=== PATIENT | male | born 1955 | race Caucasian/White ===

== ENCOUNTER 2018-01-27 18:55 | Observation (INO) | payer OTHER ==
--- NOTE | 2018-01-27 18:58 | ED ---
Fall HPI - General Stated Complaint: [facility]-Fall Time Seen by Provider: 01/27/18 18:57 - History of Present Illness Initial Comments: This is a 63-year-old male to the ER status post fall. Patient mechanical trip and fall off of a truck possible tanker truck onto ground possible left-sided injury. Patient was amateur at the scene. Again patient is no medical history takes no medications. No loss of consciousness, patient did hit his head he is brought in by EMS with c-collar anger putting of left flank pain. Patient is able to ambulate no loss of bowel or bladder. \No anterior abdominal pain. MD Complaint: fall -: minutes(s) Fall From: standing When Fall Occurred: 1 hour [employer] Fall Witnessed: yes, by family Place Fall Occurred: home Loss of Consciousness: none Prolonged Down Time?: no Symptoms Prior to Fall: none Location: head Severity: mild Context: tripped/slipped Associated Symptoms: denies - Related Data Home Medications Medication Instructions Recorded Confirmed No Known Home Medications 01/28/18 01/28/18 Allergies Allergy/AdvReac Type Severity Reaction Status Date / Time No Known Allergies Allergy Verified 01/28/18 08:50 Review of Systems ROS Statement: Those systems with pertinent positive or pertinent negative responses have been documented in the HPI. ROS Other: All systems not noted in ROS Statement are negative. Past Medical History - Past Family History Father Family Medical History: No Reported History General Exam - General Exam Comments Initial Comments: Patient has a GCS of 15 airways patent trach is midline Patient is complaining of left flank pain and does have some left flank muscular tenderness,no spinal tenderness General appearance: alert, in no apparent distress Head exam: Present: atraumatic, normocephalic, normal inspection Eye exam: Present: normal appearance, PERRL, EOMI. Absent: scleral icterus, conjunctival injection, periorbital swelling ENT exam: Present: normal exam, mucous membranes moist Neck exam: Present: normal inspection. Absent: tenderness, meningismus, lymphadenopathy Respiratory exam: Present: normal lung sounds bilaterally. Absent: respiratory distress, wheezes, rales, rhonchi, stridor Cardiovascular Exam: Present: regular rate, normal rhythm, normal heart sounds. Absent: systolic murmur, diastolic murmur, rubs, gallop, clicks GI/Abdominal exam: Present: soft, normal bowel sounds. Absent: distended, tenderness, guarding, rebound, rigid Extremities exam: Present: normal inspection, full ROM, normal capillary refill. Absent: tenderness, pedal edema, joint swelling, calf tenderness Back exam: Present: normal inspection, paraspinal tenderness (Lower thoracic spine and lumbar spine left) Neurological exam: Present: alert, oriented X3, CN II-XII intact Psychiatric exam: Present: normal affect, normal mood Skin exam: Present: warm, dry, intact, normal color. Absent: rash Course Vital Signs 01/27/18 01/27/18 01/27/18 18:56 19:29 19:30 Temperature 98.1 F 98.3 F Pulse Rate 70 63 Respiratory 18 18 Rate Blood Pressure 112/68 103/58 O2 Sat by Pulse 98 96 91 L Oximetry 01/27/18 01/27/18 01/27/18 19:54 20:00 20:30 Temperature Pulse Rate Respiratory Rate Blood Pressure 93/55 107/83 O2 Sat by Pulse 97 99 99 Oximetry 01/27/18 01/27/18 01/27/18 20:40 20:50 21:00 Temperature Pulse Rate Respiratory Rate Blood Pressure 107/83 107/83 107/83 O2 Sat by Pulse 99 Oximetry 01/27/18 01/27/18 01/27/18 21:09 21:10 21:52 Temperature 98.2 F Pulse Rate 62 66 Respiratory 18 18 Rate Blood Pressure 110/75 110/75 122/71 O2 Sat by Pulse 98 95 97 Oximetry 01/27/18 01/27/18 01/28/18 22:21 23:51 00:59 Temperature 98.4 F 98.2 F Pulse Rate 62 62 73 Respiratory 16 16 16 Rate Blood Pressure 118/67 134/75 117/74 O2 Sat by Pulse 97 94 L 95 Oximetry - Reevaluation(s) Reevaluation #1: 01/27/18 21:07 Medical record is reviewed and noncontributory Reevaluation #2: 01/27/18 21:07 Patient is in no specific pain, vital signs remain normal and stable Reevaluation #3: 01/27/18 21:07 Spoke with general surgery on-call regarding findings of CAT scan Medical Decision Making - Medical Decision Making 63 male the ER after fall. Patient a fall off a truck significant fall causing left sided abdominal pain. Patient has likely mild interabdominal bleeding secondary to trauma. Patient be admitted for trauma surgery and evaluation - Lab Data Result diagrams: 01/27/18 21:07 01/27/18 21:07 Lab Results 01/27/18 01/27/18 01/27/18 Range/Units 21:01 21:01 21:07 WBC (3.8-10.6) k/uL RBC (4.30-5.90) m/uL Hgb (13.0-17.5) gm/dL Hct (39.0-53.0) % MCV (80.0-100.0) fL MCH (25.0-35.0) pg MCHC (31.0-37.0) g/dL RDW (11.5-15.5) % Plt Count (150-450) k/uL Neutrophils % % Lymphocytes % % Monocytes % % Eosinophils % % Basophils % % Neutrophils # (1.3-7.7) k/uL Lymphocytes # (1.0-4.8) k/uL Monocytes # (0-1.0) k/uL Eosinophils # (0-0.7) k/uL Basophils # (0-0.2) k/uL Sodium 137 (137-145) mmol/L Potassium 4.2 (3.5-5.1) mmol/L Chloride 104 (98-107) mmol/L Carbon Dioxide 24 (22-30) mmol/L Anion Gap 9 mmol/L BUN 21 H (9-20) mg/dL Creatinine 0.91 (0.66-1.25) mg/dL Est GFR (CKD-EPI)AfAm >90 (>60 ml/min/1.73 sqM) Est GFR (CKD-EPI)NonAf >90 (>60 ml/min/1.73 sqM) Glucose 126 H (74-99) mg/dL Calcium 9.4 (8.4-10.2) mg/dL Total Bilirubin 0.9 (0.2-1.3) mg/dL AST 62 H (17-59) U/L ALT 65 (21-72) U/L Alkaline Phosphatase 112 (38-126) U/L Total Creatine Kinase (55-170) U/L CK-MB (CK-2) (0.0-2.4) ng/mL CK-MB (CK-2) Rel Index Troponin I (0.000-0.034) ng/mL Total Protein 7.6 (6.3-8.2) g/dL Albumin 4.3 (3.5-5.0) g/dL Urine Color Yellow Urine Appearance Clear (Clear) Urine pH 5.5 (5.0-8.0) Ur Specific [place] >1.050 H (1.001-1.035) Urine Protein Trace H (Negative) Urine Glucose (UA) Negative (Negative) Urine Ketones Negative (Negative) Urine Blood Small H (Negative) Urine Nitrite Negative (Negative) Urine Bilirubin Negative (Negative) Urine Urobilinogen <2.0 (<2.0) mg/dL Ur Leukocyte Esterase Negative (Negative) Urine RBC 5 (0-5) /hpf Urine WBC 3 (0-5) /hpf Urine Mucus Rare H (None) /hpf Urine Opiates Screen Not Detected (NotDetected) Ur Oxycodone Screen Not Detected (NotDetected) Urine Methadone Screen Not Detected (NotDetected) Ur Propoxyphene Screen Not Detected (NotDetected) Ur Barbiturates Screen Not Detected (NotDetected) U Tricyclic Antidepress Not Detected (NotDetected) Ur Phencyclidine Scrn Not Detected (NotDetected) Ur Amphetamines Screen Not Detected (NotDetected) U Methamphetamines Scrn Not Detected (NotDetected) U Benzodiazepines Scrn Not Detected (NotDetected) Urine Cocaine Screen Not Detected (NotDetected) U Marijuana (THC) Screen Not Detected (NotDetected) Serum Alcohol <10 mg/dL 01/27/18 01/27/18 Range/Units 21:07 21:07 WBC 15.4 H (3.8-10.6) k/uL RBC 5.06 (4.30-5.90) m/uL Hgb 15.8 (13.0-17.5) gm/dL Hct 47.3 (39.0-53.0) % MCV 93.5 (80.0-100.0) fL MCH 31.3 (25.0-35.0) pg MCHC 33.5 (31.0-37.0) g/dL RDW 13.9 (11.5-15.5) % Plt Count 218 (150-450) k/uL Neutrophils % 89 % Lymphocytes % 5 % Monocytes % 4 % Eosinophils % 1 % Basophils % 0 % Neutrophils # 13.7 H (1.3-7.7) k/uL Lymphocytes # 0.8 L (1.0-4.8) k/uL Monocytes # 0.6 (0-1.0) k/uL Eosinophils # 0.1 (0-0.7) k/uL Basophils # 0.1 (0-0.2) k/uL Sodium (137-145) mmol/L Potassium (3.5-5.1) mmol/L Chloride (98-107) mmol/L Carbon Dioxide (22-30) mmol/L Anion Gap mmol/L BUN (9-20) mg/dL Creatinine (0.66-1.25) mg/dL Est GFR (CKD-EPI)AfAm (>60 ml/min/1.73 sqM) Est GFR (CKD-EPI)NonAf (>60 ml/min/1.73 sqM) Glucose (74-99) mg/dL Calcium (8.4-10.2) mg/dL Total Bilirubin (0.2-1.3) mg/dL AST (17-59) U/L ALT (21-72) U/L Alkaline Phosphatase (38-126) U/L Total Creatine Kinase 511 H (55-170) U/L CK-MB (CK-2) 8.9 H (0.0-2.4) ng/mL CK-MB (CK-2) Rel Index 1.7 Troponin I <0.012 (0.000-0.034) ng/mL Total Protein (6.3-8.2) g/dL Albumin (3.5-5.0) g/dL Urine Color Urine Appearance (Clear) Urine pH (5.0-8.0) Ur Specific [place] (1.001-1.035) Urine Protein (Negative) Urine Glucose (UA) (Negative) Urine Ketones (Negative) Urine Blood (Negative) Urine Nitrite (Negative) Urine Bilirubin (Negative) Urine Urobilinogen (<2.0) mg/dL Ur Leukocyte Esterase (Negative) Urine RBC (0-5) /hpf Urine WBC (0-5) /hpf Urine Mucus (None) /hpf Urine Opiates Screen (NotDetected) Ur Oxycodone Screen (NotDetected) Urine Methadone Screen (NotDetected) Ur Propoxyphene Screen (NotDetected) Ur Barbiturates Screen (NotDetected) U Tricyclic Antidepress (NotDetected) Ur Phencyclidine Scrn (NotDetected) Ur Amphetamines Screen (NotDetected) U Methamphetamines Scrn (NotDetected) U Benzodiazepines Scrn (NotDetected) Urine Cocaine Screen (NotDetected) U Marijuana (THC) Screen (NotDetected) Serum Alcohol mg/dL - Radiology Data Radiology results: report reviewed (CT brain C-spine, CT chest and pelvis does show fluid collection in the left Retzvius area, 7 x 1 x 4 cm), image reviewed Critical Care Time Critical Care Time: Yes Total Critical Care Time: 31 Disposition Clinical Impression: Fall, Left flank pain, Abdominal hemorrhage Disposition: ADMITTED IP TO THIS [facility] Condition: Good Is patient prescribed a controlled substance at d/c from ED?: No
[2018-01-27] MEDS ORDERED: ACETAMINOPHEN IV (For NPO) 1,000 MG in EMPTY BAG 1 BAG IVPB STA (19:20)
[2018-01-27] MEDS ORDERED: SODIUM CHLORIDE 0.9% 1,000 ML IV STA (19:20)
--- NOTE | 2018-01-27 20:11 | CT ---
EXAMINATION TYPE: CT brain tatiana lopez DATE OF EXAM: 01/27/2018 COMPARISON: None HISTORY: 63-year-old male Fall injury, 12ft. Lower pelvic pain CT DLP: 1919.4 mGycm Automated exposure control for dose reduction was used. Technique: Examination of the head was done in axial plane without intravenous contrast. Coronal and sagittal reconstructions performed. CT of the cervical spine was obtained in axial plane without intravenous injection of contrast mater ial. Coronal and sagittal reformatted images were obtained from the axial views for evaluation of f ractures, spinal alignment and canal. FINDINGS: Head: There is no evidence of acute intracranial hemorrhage, acute ischemic changes, mass, mass-effect, or extra-axial fluid collection. There is no effacement of cerebral sulci or basal subarachnoid cister ns. There is no hydrocephalus. There is no midline shift. Dean-white matter distinction is preserv ed. Mild cerebral cortical atrophy. Paranasal sinuses and mastoid air cells are well pneumatized. Orbits and globes are intact. No calvar ial fracture. Cervical spine: The craniocervical junction abnormally, predental space widening, or prevertebral soft tissue swellin g. Straightening of the normal cervical lordosis with preserved alignment. Moderate discussion plate degenerative change mid to lower cervical spine. No evident canal compromis e assessment of the spinal canal especially from C5-C6 and below is limited due to prominent artifact s. Multilevel facet and uncovertebral joint arthropathy. Mild neural foraminal narrowing, more moderate on the right at C6/C7. Sagittal and coronal reformatted images confirm above findings. COMBINED IMPRESSION: 1. Mild cerebral atrophy. No acute intracranial abnormality seen. 2. No acute fracture or malalignment of the cervical spine. Mild to moderate overall spondylotic patton ge.
--- NOTE | 2018-01-27 20:25 | CT ---
EXAMINATION TYPE: CT ChestAbdPelvis w con DATE OF EXAM: 01/27/2018 COMPARISON: None HISTORY: 63-year-old male Fall injury, 12ft. Lower pelvic pain TECHNIQUE: Contiguous axial scanning of the chest, abdomen, and pelvis performed with IV Contrast, pa tient injected with 100 mL of Isovue 300. Coronal/sagittal reconstructions performed. CT DLP: 2042.4 mGycm Automated exposure control for dose reduction was used. FINDINGS: Chest: Heart normal size without pericardial effusion. 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 No evidence for aortic dissection. No thoracic lymphadenopathy by CT size criteria. Right paratracheal lymph node measures up to 7 mm. N o mediastinal hematoma. No consolidation, pneumothorax, or pleural effusion might. Mild diffuse bronchial wall thickening pro bably chronic bronchitis. Minimal tree-in-bud opacities at the posterior right base are nonspecific a nd could represent minimal aspiration or focal bronchiolitis. ABDOMEN: Small hiatal hernia. Arterial phase imaging shows no focal liver lesion. Gallbladder, adrenal glands, kidneys, spleen, pancreas appear within normal limits. No dilated small bowel, free fluid, or free air. No mesenteric or retroperitoneal lymphadenopathy. Normal appendix. Mild stool wording without pericolonic inflammatory change. Prior ventral abdominal wall hernia repair with recurrent omental fat-containing hernia right paramed conner supraumbilical region measuring 2.7 x 2.3 cm and the hernia neck measuring 6 mm wide. This occurs along the right lateral margin of the mesh material, refer to axial image 81 and 82 and sagittal myrna ge 57. There is a small residual periumbilical hernia despite the mesh repair. Pelvis: Essentially focal wall thickening of the anterior and right bladder with mild surrounding fat strandi ng. There is a crescentic 7.4 cm wide by 1 cm thick by 4.4 cm craniocaudal focal fluid or soft tissue thi ckening in the space of Retzius anterior extraperitoneal location, referred for sagittal image 68 or chemical sales representative image. This is also seen on axial image 116. No pelvic ascites. Prostate gland measure s 4.8 cm wide. Although phleboliths. No pelvic lymphadenopathy. Bones: Degenerative changes at the hips. There are no pelvic fractures seen. 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 Severe neuroforam inal stenoses at L5-S1 moderate to severe focal spinal canal stenosis at L5-S1. IMPRESSION: 1. Focal crescentic fluid or soft tissue thickening in the space of Retzius between the bladder and p ubic bone. This measures 7.4 x 1 x 4.4 cm. This is an extraperitoneal space and bladder injury with e xtraperitoneal urine leak should be excluded. Otherwise, posttraumatic hematoma is a consideration. 2. No pelvic bone fracture. No other acute traumatic sequela identified in the chest, abdomen, or pel vis. 3. Prior ventral abdominal wall mesh repair. There are persistent or recurrent small fatty umbilical and right paramedian hernias measuring up to 2.7 cm. 4. Small hiatal hernia.
[2018-01-27] MEDS ORDERED: SODIUM CHLORIDE 0.9% 500 ML 500 ML IV STA (20:54)
[2018-01-27 21:12] LABS: Appearance,Urine Clear (Clear); Bilirubin,Urine Negative (Negative); Blood,Urine Small (Negative); Color,Urine Yellow; Glucose,Urine (UA) Negative (Negative); Ketones,Urine Negative (Negative); Leukocyte Esterase,Urine Negative (Negative); Mucus,Urine Rare /hpf; Nitrite,Urine Negative (Negative); PH, Urine 5.5 (5.0-8.0); Protein,Urine Trace (Negative); RBC,Urine 5 /hpf (0-5); Urobilinogen,Urine <2.0 mg/dL (<2.0); WBC,Urine 3 /hpf (0-5)
[2018-01-27 21:16] LABS: Specific Gravity,Urine >1.050 (1.001-1.035)
[2018-01-27 21:20] LABS: Basophils # (A) 0.1 k/uL (0-0.2); Basophils % (A) 0 %; Eosinophils # (A) 0.1 k/uL (0-0.7); Eosinophils % (A) 1 %; HCT 47.3 % (39.0-53.0); HGB 15.8 gm/dL (13.0-17.5); Lymphocytes # (A) 0.8 k/uL (1.0-4.8); Lymphocytes % (A) 5 %; MCH 31.3 pg (25.0-35.0); MCHC 33.5 g/dL (31.0-37.0); MCV 93.5 fL (80.0-100.0); Mean Platelet Volume 7.2; Monocytes # (A) 0.6 k/uL (0-1.0); Monocytes % (A) 4 %; Neutrophils # (A) 13.7 k/uL (1.3-7.7); Neutrophils % (A) 89 %; Platelet Count 218 k/uL (150-450); RBC 5.06 m/uL (4.30-5.90); RDW 13.9 % (11.5-15.5); WBC 15.4 k/uL (3.8-10.6)
[2018-01-27] MEDS ORDERED: MORPHINE SULFATE 4 MG/ML SYRINGE IVP PRN (21:23)
[2018-01-27 21:32] LABS: Amphetamine Screen,Urine Not Detected (NotDetected); Barbiturate Screen,Urine Not Detected (NotDetected); Benzodiazepines Screen,Urine Not Detected (NotDetected); Cocaine Screen,Urine Not Detected (NotDetected); Methadone Screen, Urine Not Detected (NotDetected); Opiate Screen,Urine Not Detected (NotDetected); Oxycodone Screen, Urine Not Detected (NotDetected); Phencyclidine Screen,Urine Not Detected (NotDetected); Tricyclic Antidepressant,Urine Not Detected (NotDetected); Urn Cannabinoid Scrn Not Detected (NotDetected)
[2018-01-27 21:43] LABS: Creatine Kinase 511 U/L (55-170)
[2018-01-27 21:44] LABS: ALT 65 U/L (21-72); AST 62 U/L (17-59); Albumin 4.3 g/dL (3.5-5.0); Alcohol <10 mg/dL; Alkaline Phosphatase 112 U/L (38-126); Anion Gap 9 mmol/L; Blood Urea Nitrogen 21 mg/dL (9-20); Calcium 9.4 mg/dL (8.4-10.2); Carbon Dioxide 24 mmol/L (22-30); Chloride 104 mmol/L (98-107); Glucose 126 mg/dL (74-99); Potassium 4.2 mmol/L (3.5-5.1); Sodium 137 mmol/L (137-145); Total Bilirubin 0.9 mg/dL (0.2-1.3); Total Protein 7.6 g/dL (6.3-8.2)
[2018-01-27 21:55] LABS: Creatine Kinase MB 8.9 ng/mL (0.0-2.4); Troponin I <0.012 ng/mL (0.000-0.034)
--- NOTE | 2018-01-27 23:00 | XR ---
EXAMINATION TYPE: XR pelvis AP view DATE OF EXAM: 01/27/2018 COMPARISON: NONE HISTORY: Trauma. Pain TECHNIQUE: Single view FINDINGS: Pelvic ring appears intact. There is some contrast in the urinary bladder which is almost e mpty. I see no obvious contrast extravasation. Proximal femurs are intact. IMPRESSION: No bladder abnormality seen. No fracture.
--- NOTE | 2018-01-28 00:39 | FL ---
Cystogram History possible bladder rupture. Trauma. Pain. Comparison none. FINDINGS: 200 mL of Isovue-300 was instilled into the urinary bladder. Bladder distends smoothly. There is no e vidence of contrast extravasation. Post void image shows no evidence of contrast extravasation. There is complete emptying of the urinary bladder. The pelvic ring is intact without evidence for fracture . IMPRESSION: Normal exam. No evidence of bladder rupture.
[2018-01-28 02:02] VITALS: BMI 37.3
[2018-01-28] MEDS ORDERED: CYCLOBENZAPRINE 5 MG TAB PO PRN (10:43)
--- NOTE | 2018-01-28 12:30 | P.GSHP ---
History of Present Illness H&P Date: 01/28/18 Chief Complaint: status post fall 63-year-old male presents to the ER last night after falling approximately 10- 12 feet from his truck. The patient landed on his left hip. He did feel the back of his head hit the ground however he said it was light. No loss of consciousness. Patient was ambulating at the scene. He came to the hospital via EMS. Still complaining of mild pain and left hip and buttock region. No abdominal pain. No back pain. CT chest abdomen and pelvis revealed a small margin of inflammatory change and fluid around the bladder behind the pubic symphysis. Cystogram was performed which was negative for bladder injury. Ardon catheter was placed at the time of the cystogram. Hemodynamic with the patient is stable. Pelvis x-ray normal. He is hungry. - Review of Systems Comment: The patient denies any acute changes in his vision or hearing, no dysphagia or odynophagia, no chest pain or shortness of breath, no dysuria or hematuria, no headache, no runny nose, no rectal bleeding or melena, no unexplained weight loss Past Medical History Past Medical History: No Reported History History of Any Multi-Drug Resistant Organisms: None Reported Past Surgical History: Hernia Repair Past Anesthesia/Blood Transfusion Reactions: No Reported Reaction Past Psychological History: No Psychological Hx Reported Smoking Status: Current some day smoker Past Alcohol Use History: Occasional Past Drug Use History: None Reported - Past Family History Father Family Medical History: No Reported History Medications and Allergies Home Medications Medication Instructions Recorded Confirmed Type No Known Home Medications 01/28/18 01/28/18 History Allergies Allergy/AdvReac Type Severity Reaction Status Date / Time No Known Allergies Allergy Verified 01/28/18 08:50 Surgical - Exam Vital Signs Temp Pulse Resp BP Pulse Ox 98.1 F 70 18 112/68 98 01/27/18 18:56 01/27/18 18:56 01/27/18 18:56 01/27/18 18:56 01/27/18 18:56 Physical exam: General: Well-developed, well-nourished HEENT: Normocephalic, sclerae nonicteric Abdomen: Nontender, nondistended Extremities: No edema, Mild left hip and buttock tenderness, some induration and ecchymosis left buttock, some ecchymosis upper gluteal crease Neuro: Alert and oriented Results - Labs 01/27/18 21:07 01/27/18 21:07 Abnormal Lab Results - Last 24 Hours (Table) 01/27/18 01/27/18 01/27/18 Range/Units 21:01 21:07 21:07 WBC (3.8-10.6) k/uL Neutrophils # (1.3-7.7) k/uL Lymphocytes # (1.0-4.8) k/uL BUN 21 H (9-20) mg/dL Glucose 126 H (74-99) mg/dL AST 62 H (17-59) U/L Total Creatine Kinase 511 H (55-170) U/L CK-MB (CK-2) 8.9 H (0.0-2.4) ng/mL Ur Specific [place] >1.050 H (1.001-1.035) Urine Protein Trace H (Negative) Urine Blood Small H (Negative) Urine Mucus Rare H (None) /hpf 01/27/18 Range/Units 21:07 WBC 15.4 H (3.8-10.6) k/uL Neutrophils # 13.7 H (1.3-7.7) k/uL Lymphocytes # 0.8 L (1.0-4.8) k/uL BUN (9-20) mg/dL Glucose (74-99) mg/dL AST (17-59) U/L Total Creatine Kinase (55-170) U/L CK-MB (CK-2) (0.0-2.4) ng/mL Ur Specific [place] (1.001-1.035) Urine Protein (Negative) Urine Blood (Negative) Urine Mucus (None) /hpf Diabetes panel 01/27/18 Range/Units 21:07 Sodium 137 (137-145) mmol/L Potassium 4.2 (3.5-5.1) mmol/L Chloride 104 (98-107) mmol/L Carbon Dioxide 24 (22-30) mmol/L BUN 21 H (9-20) mg/dL Creatinine 0.91 (0.66-1.25) mg/dL Glucose 126 H (74-99) mg/dL Calcium 9.4 (8.4-10.2) mg/dL AST 62 H (17-59) U/L ALT 65 (21-72) U/L Alkaline Phosphatase 112 (38-126) U/L Total Protein 7.6 (6.3-8.2) g/dL Albumin 4.3 (3.5-5.0) g/dL Calcium panel 01/27/18 Range/Units 21:07 Calcium 9.4 (8.4-10.2) mg/dL Albumin 4.3 (3.5-5.0) g/dL Pituitary panel 01/27/18 Range/Units 21:07 Sodium 137 (137-145) mmol/L Potassium 4.2 (3.5-5.1) mmol/L Chloride 104 (98-107) mmol/L Carbon Dioxide 24 (22-30) mmol/L BUN 21 H (9-20) mg/dL Creatinine 0.91 (0.66-1.25) mg/dL Glucose 126 H (74-99) mg/dL Calcium 9.4 (8.4-10.2) mg/dL Adrenal panel 01/27/18 Range/Units 21:07 Sodium 137 (137-145) mmol/L Potassium 4.2 (3.5-5.1) mmol/L Chloride 104 (98-107) mmol/L Carbon Dioxide 24 (22-30) mmol/L BUN 21 H (9-20) mg/dL Creatinine 0.91 (0.66-1.25) mg/dL Glucose 126 H (74-99) mg/dL Calcium 9.4 (8.4-10.2) mg/dL Total Bilirubin 0.9 (0.2-1.3) mg/dL AST 62 H (17-59) U/L ALT 65 (21-72) U/L Alkaline Phosphatase 112 (38-126) U/L Total Protein 7.6 (6.3-8.2) g/dL Albumin 4.3 (3.5-5.0) g/dL Assessment and Plan (1) Fall Narrative/Plan: Patient doing relatively well after moderate impact fall. CAT scan findings were reviewed with urology and cystogram findings thankfully do not show evidence of bladder injury. Patient still having pain in the left hip and buttock. We'll consult orthopedics. If he is cleared from their standpoint likely discharge later today with plans for outpatient follow-up with his primary care physician. Current Visit: Yes Status: Acute Code(s): W19.XXXA - UNSPECIFIED FALL, INITIAL ENCOUNTER SNOMED Code(s): 2664339
--- NOTE | 2018-01-28 13:56 | P.CNOR ---
History of Present Illness - [facility] Consult date: 01/28/18 Requesting physician: Jonas Grove Consult reason: joint pain History of present illness: Patient is a 63-year-old male seen at bedside this morning for orthopedic consultation of left hip/buttock pain. He presented to the ER last night after falling approximately 10-12 feet from his truck. The patient landed on his left hip. He did feel the back of his head hit the ground however he said it was light. No loss of consciousness. Patient states that he did ambulate after the fall. He continues to have mild pain at the left hip and buttock region. He has no groin pain, back pain, loss of bowel or bladder, or radicular symptoms including numbness or tingling. ROS is otherwise negative. Review of Systems All systems: negative Constitutional: Denies chills, Denies fever Eyes: denies blurred vision, denies pain Ears, nose, mouth and throat: Denies headache, Denies sore throat Cardiovascular: Denies chest pain, Denies shortness of breath Respiratory: Denies cough Gastrointestinal: Denies abdominal pain, Denies diarrhea, Denies nausea, Denies vomiting Musculoskeletal: Denies myalgias Integumentary: Denies pruritus, Denies rash Neurological: Denies numbness, Denies weakness Psychiatric: Denies anxiety, Denies depression Endocrine: Denies fatigue, Denies weight change Past Medical History Past Medical History: No Reported History History of Any Multi-Drug Resistant Organisms: None Reported Past Surgical History: Hernia Repair Past Anesthesia/Blood Transfusion Reactions: No Reported Reaction Past Psychological History: No Psychological Hx Reported Smoking Status: Current some day smoker Past Alcohol Use History: Occasional Past Drug Use History: None Reported - Past Family History Father Family Medical History: No Reported History Medications and Allergies Home Medications Medication Instructions Recorded Confirmed Type No Known Home Medications 01/28/18 01/28/18 History Allergies Allergy/AdvReac Type Severity Reaction Status Date / Time No Known Allergies Allergy Verified 01/28/18 08:50 Physical Examination Inspection of the low back and sacrum is benign. There is no stepoff or deformity. It is non tender. Inspection of the left lower extremity shows evolving echymosis at the left buttock where it is tender. There is no erythema or wounds. There is no deformity. Limb lengths are equal. He has painless range of motion at the hip where he can flex 90 degrees, abduct and adduct 20 degrees, internal rotate 30 degrees and external rotate 40 degrees all without pain. Neurological status is fully intact with 5/5 motor L2-S1 myotomes. L2-S1 dermatomes intact to light touch. No pathologic reflexes. Calf is SNT. There is 2+ DP pulse and less than 2 sec cap refill distally. Results Xrays of the pelvis and hip are negative for definitive acute fracture. - Labs Labs: Abnormal Lab Results - Last 24 Hours (Table) 01/27/18 01/27/18 01/27/18 Range/Units 21:01 21:07 21:07 WBC (3.8-10.6) k/uL Neutrophils # (1.3-7.7) k/uL Lymphocytes # (1.0-4.8) k/uL BUN 21 H (9-20) mg/dL Glucose 126 H (74-99) mg/dL AST 62 H (17-59) U/L Total Creatine Kinase 511 H (55-170) U/L CK-MB (CK-2) 8.9 H (0.0-2.4) ng/mL Ur Specific [place] >1.050 H (1.001-1.035) Urine Protein Trace H (Negative) Urine Blood Small H (Negative) Urine Mucus Rare H (None) /hpf 01/27/18 Range/Units 21:07 WBC 15.4 H (3.8-10.6) k/uL Neutrophils # 13.7 H (1.3-7.7) k/uL Lymphocytes # 0.8 L (1.0-4.8) k/uL BUN (9-20) mg/dL Glucose (74-99) mg/dL AST (17-59) U/L Total Creatine Kinase (55-170) U/L CK-MB (CK-2) (0.0-2.4) ng/mL Ur Specific [place] (1.001-1.035) Urine Protein (Negative) Urine Blood (Negative) Urine Mucus (None) /hpf H & H 01/27/18 Range/Units 21:07 Hgb 15.8 (13.0-17.5) gm/dL Hct 47.3 (39.0-53.0) % Result Diagrams: 01/27/18 21:07 01/27/18 21:07 Assessment and Plan (1) Left hip pain Narrative/Plan: Patient has suffered a contusion/hematoma to the left buttock. Xrays of the pelvis/hip appear to be negative. He has painless ROM of the hip. He has no neurological symptoms and is neurologically intact. He may be discharged from an orthopedic standpoint. Recommend rest, antiinflammotories and f/u with provider near his home. Thank you Current Visit: Yes Status: Acute Code(s): M25.552 - PAIN IN LEFT HIP SNOMED Code(s): 76354088 Time with Patient: Less than 30
[2018-01-28] MEDS: KETOROLAC 30 MG/ML 1 ML VIAL IVP SCH ×2 (18:28→23:29)
[2018-01-29] MEDS: KETOROLAC 30 MG/ML 1 ML VIAL IVP SCH ×2 (04:57→12:00)
[2018-01-29 05:30] VITALS: BP 127/72; PULSE 74; RESP 17; TEMP 99
--- NOTE | 2018-01-29 12:28 | P.DS ---
Providers Date of admission: 01/27/18 21:17 Expected date of discharge: 01/29/18 Attending physician: Ronan Walker Consults: 01/28/18 09:59 Consult Physician Routine Consulting Provider: Jonas Grove Consult Reason/Comments: trauma fall left hip Do you want consulting provider notified?: Yes Primary care physician: Stated None - Discharge Diagnosis(es) (1) Fall Patient minute after fall from a proximally 12 feet. She developed a left hip contusion. Also had on CAT scan some inflammatory change around his bladder. His to [place] was normal. Patient has done well since admission. He was having some pain with ambulation yesterday. Orthopedics has cleared this patient for discharge. Patient doing well currently. We'll discharge with plans for outpatient follow-up by his primary care physician. Prescription for a rolling walker was provided. Patient does not want pain medications for home. Current Visit: Yes Status: Acute Patient Condition at Discharge: Good Plan - Discharge Summary New Discharge Prescriptions: No Action No Known Home Medications Discharge Medication List No Known Home Medications 01/28/18 [History] Follow up Appointment(s)/Referral(s): None,Stated [Primary Care Provider] - 1-2 days (Patient to make own follow-up appt. with in the [facility]) Patient Instructions/Handouts: Fall Prevention (DC)
== END 2018-01-29 13:45 | disposition home or self-care (01) ==
LOC: EC 18:55 → 3NMEDONC 21:17
PROVIDERS: ADMIT Surgery; ATTEND Surgery
DX: S70.02XA Contusion of left hip, initial encounter (principal); S30.0XXA Contusion of lower back and pelvis, initial encounter; F17.200 Nicotine dependence, unspecified, uncomplicated; W17.89XA Other fall from one level to another, initial encounter; Y92.009 Unspecified place in unspecified non-institutional (private) residence as the place of occurrence of the external cause
CPT/HCPCS: 96375; 96376; 82075; 96361; 96374; 99291; 36415; 97162; 80053; 82550; 82553; 84484; 85025; 81001; 80306; 80320; 72170; 74430; 72125; 70450; 71260; 74177; G0378 ×3; J1885 ×2; J0131; Q9967 ×2